=== PATIENT | female | born 1995 | race Caucasian/White ===

== ENCOUNTER 2024-12-07 14:10 | Outpatient (CLI) | payer OTHER ==
[~2024-12-07] VITALS: Ht 170.2 cm; Wt 82.6 kg
[2024-12-07 11:08] VITALS: BP 105/70
[2024-12-07] MEDS ORDERED: PRENATAL TABLE1 EAC1 PO (14:12)
[2024-12-07 15:13] VITALS: BP 101/68
[2024-12-07 15:25] VITALS: BP 101/68
== END 2024-12-07 14:50 | disposition home or self-care (01) ==
LOC: OBS/DEL 14:10
PROVIDERS: ATTEND Obstetrics & Gynecology Gynecology
DX: O26.852 Spotting complicating pregnancy, second trimester (principal); Z3A.27 27 weeks gestation of pregnancy

== ENCOUNTER 2025-02-24 13:45 | Inpatient (IN) | payer OTHER ==
[~2025-02-24] VITALS: Ht 170.2 cm; Wt 90.3 kg
[~2025-02-24 13:45] MED LIST: PRENATAL TABLE1 EAC1 PO
[2025-03-02 01:30] VITALS: BP 131/78
[2025-03-02] MEDS ORDERED: MORPHINE SULFATE 4 MG/ML VIAL IV PRN (02:30)
[2025-03-02] MEDS ORDERED: AMPICILLIN SODIUM 2,000 MG VIAL IV ONE (02:30)
[2025-03-02] MEDS ORDERED: RINGERS SOLUTION,LACTATED 1,000 ML IV SCH (02:30)
[2025-03-02] MEDS ORDERED: FOLIC ACID0.8 M1 PO (03:21)
[2025-03-02] MEDS ORDERED: CALCIUM500 M2 PO (03:21)
[2025-03-02] MEDS ORDERED: PROBIOTIC1 EAC4 PO (03:22)
[2025-03-02 03:43] LABS: BASO % 0.2 % (0.1-1.2); EOS # 0.07 (0.04-0.54); EOS % 0.6 % (0.7-7.0); LYMPH # 1.87 (1.18-3.74); LYMPH % 15.2 % (19.3-53.1); MEAN PLATELET VOLUME 10.50 fl (9.4-12.4); MONO # 0.77 (0.24-0.82); MONO % 6.3 % (4.7-12.5); NEUT # 9.45 (1.56-6.13); NEUT % 76.9 % (34.0-71.1); RED CELL DISTRIBUTION WIDTH 13.2 % (11.6-14.4)
[2025-03-02 04:00] LABS: INR 0.96
[2025-03-02 04:02] LABS: ALT/SGPT 37.0 U/L (12-78); AST/SGOT 23.0 U/L (15-37); BILIRUBIN TOTAL 0.38 mg/dL (0.3-1.2); BUN CREA RATIO 19.0 (7.0-25.0); CREATININE SERUM 0.48 mg/dL (0.55-1.02); GFR 152.9; GLOBULINA 3.5 G/DL (2.4-3.5); GLUCOSE FASTING 84.0 mg/dL (65-100); OSMOLALITY SERUM 279.0 MOSM/KG (275-295)
[2025-03-02] MEDS ORDERED: AMPICILLIN SODIUM 1,000 MG VIAL IV SCH (05:00)
[2025-03-02 07:12] VITALS: BP 113/68
[2025-03-02] MEDS ORDERED: OXYTOCIN 500 ML IV ONE (08:30)
[2025-03-02 11:05] VITALS: BP 123/76
[2025-03-02] MEDS ORDERED: ERYTHROMYCIN BASE OPHT 1GM EACH TUBE OP ONE (12:02)
[2025-03-02] MEDS ORDERED: LIDOCAINE HCL 1% 10ML VIAL ONE (12:03)
[2025-03-02] MEDS ORDERED: OXYTOCIN 20 UNITS/1000ML RL PIGGYBAG IV ONE (12:03)
[2025-03-02] MEDS ORDERED: CHLORHEXIDINE GLUCONATE 120 ML BOTTLE TOP ONE (12:03)
[2025-03-02] MEDS ORDERED: OXYTOCIN 1,000 ML IV SCH (12:45)
[2025-03-02] MEDS ORDERED: CHLORHEXIDINE GLUCONATE 120 ML BOTTLE TP SCH (12:45)
[2025-03-02 15:07] VITALS: BP 119/75
[2025-03-03] VITALS: BP 101/64
[2025-03-03 06:52] LABS: BASO % 0.1 % (0.1-1.2); EOS # 0.02 (0.04-0.54); EOS % 0.1 % (0.7-7.0); LYMPH # 2.48 (1.18-3.74); LYMPH % 13.4 % (19.3-53.1); MEAN PLATELET VOLUME 10.00 fl (9.4-12.4); MONO # 1.07 (0.24-0.82); MONO % 5.8 % (4.7-12.5); NEUT # 14.75 (1.56-6.13); NEUT % 79.7 % (34.0-71.1); RED CELL DISTRIBUTION WIDTH 13.1 % (11.6-14.4)
[2025-03-03 08:00] VITALS: BP 113/78
[2025-03-03 16:14] VITALS: BP 100/63
[2025-03-04] VITALS: BP 113/81
[2025-03-04 08:16] VITALS: BP 113/78
== END 2025-03-04 10:19 | disposition home or self-care (01) | DRG 807 ==
LOC: OB/GYN 03-02 02:16 → LDR 03-02 02:16 → OB/GYN 03-02 13:55
PROVIDERS: Obstetrics & Gynecology; ADMIT Obstetrics & Gynecology; ATTEND Obstetrics & Gynecology
PROC: 10E0XZZ Delivery of Products of Conception, External Approach (ICD-10-PCS; principal; 2025-03-02)
PROC: 0KQM0ZZ Repair Perineum Muscle, Open Approach (ICD-10-PCS; 2025-03-02)
PROC: 4A1HXCZ Monitoring of Products of Conception, Cardiac Rate, External Approach (ICD-10-PCS; 2025-03-02)
DX: O70.1 Second degree perineal laceration during delivery (principal); Z37.0 Single live birth; Z3A.39 39 weeks gestation of pregnancy